=== PATIENT | female | born 1960 | race African-American/Black ===

== ENCOUNTER → 2017-05-31 08:37 | Outpatient (CLI) | payer MEDICARE ==
[2012-02-20 07:45] VITALS: BMI 33.3
[~2017-05-31 08:37] MED LIST: AMBIEN10 MG PO; BAYER CHEWABLE81 MG PO; CARDURA1 MG PO; COREG25 MG PO; COZAAR50 MG PO; EFFEXOR100 MG PO; GLIPIZIDE10 MG PO; GLUCOPHAGE1000 MG PO; HYDROCHLOROTHIA25 MG PO; LIPITOR80 MG PO; MORPHINE IMMEDI15 MG PO; NEURONTIN 300300 MG PO; NOVOLIN N100 U/ML SQ; PLAVIX75 MG PO; ROBAXIN500 MG PO; TORADOL10 MG PO
--- NOTE | 2017-06-08 12:49 | EC ---
PATIENT:SHAHZAD HERNANDEZ DATE OF SERVICE: 05/31/17 SEX: F MEDICAL RECORD: [id number] DATE OF : 56 LOCATION:[facility] AGE OF PATIENT: 56 ADMISSION DATE: 05/31/17 REFERRING PHYSICIAN: INTERPRETING PHYSICIAN: RAJWINDER MORAN MD ECHOCARDIOGRAM REPORT ECHO CHARGES 4 ECHO COMPLETE CLINICAL DIAGNOSIS: HTN/CAD ECHOCARDIOGRAPHIC MEASUREMENTS (adult normal given) AC root (d.<3.7cm) 3.5 cm LV Septum d (<1.2 cm> 1.9 cm Valve Excursion 2.3 cm LV Septum (systole) 2.3 cm Left Atria (s.<4.0cm> 3.6 cm LVPW d(<1.2cm) 1.6 cm RV (d.<2.3cm) 2.7 cm LVPW (sytole) 2.0 cm LV diastole(<5.6CM) 5.3 cm MV E-F(>70mm/sec) cm LV systole 3.0 cm LVOT Diameter 2.0 cm MV exc.(>10mm) cm Est.ejection fraction (50-75%) % Pericardial Effusion N DOPPLER: LVIT cm/sec A 64.0 cm/sec E 96.0 cm/sec LA cm/sec RVSP 34.0 mmHg LVOT 112 cm/sec AOP1/2T m/s Asc. Ao 171 cm/sec RVOT 95.0 cm/sec RA cm/sec PA 103 cm/sec AV Gradient Peak 12.0 mmHg AV Mean 5.5 mmHg AV Area 1.7 cm MV Gradient Peak 6.3 mmHg MV Mean 2.3 mmHg MV Area cm COMMENTS: Structural Technician: 1 JOSE NEWARK Homeopathic Doctor: 4 Dr. Moran TAPE# PACS DATE OF SERVICE: 05/31/2017 TRANSTHORACIC ECHOCARDIOGRAM FINDINGS: 1. Left ventricle shows mild concentric left ventricular hypertrophy with an ejection fraction of 65%. There is inflow characteristics that are normal. 2. The left atrium is normal size, normal function. 3. The aortic valve is normal size, normal function. 4. The mitral valve is structurally normal. Inflow of the mitral valve shows ECHOCARDIOGRAM REPORT [id number] SHAHZAD HERNANDEZ diastolic dysfunction. 5. The IVC is normal and collapses. 6. The tricuspid valve shows mild tricuspid regurgitation. There is no indication of elevation of the right ventricular systolic pressures. 7. The right ventricle is normal. 8. The right atrium appears to be mildly dilated. CONCLUSIONS: The patient has evidence of mild hypertensive heart disease without significant valvular abnormalities and with normal function. TRANSINT:[id number] Voice Confirmation ID: [id number] DOCUMENT ID: [id number] RAJWINDER MORAN MD at 1249 CC: [id number] DICTATION DATE: 06/01/17913 CUTTER APPRENTICE HAND: 06/01/17 1111 [facility] CLI 05/31/17 [facility] [address] [place] [address]
[2017-07-11 09:49] VITALS: BMI 40.5
== END | disposition home or self-care (01) ==
LOC: D.ECHO 05-26 09:00
DX: I25.119 Atherosclerotic heart disease of native coronary artery with unspecified angina pectoris (principal); Z95.5 Presence of coronary angioplasty implant and graft; I10 Essential (primary) hypertension

== ENCOUNTER 2017-06-20 06:47 | Outpatient (CLI) | payer MEDICARE ==
--- NOTE | ~2017-06-20 | HEMODYNAMI ---
PATIENT:SHAHZAD HERNANDEZ MEDICAL RECORD: [id number] : 56 [facility] ADMISSION DATE: 06/20/17 Generatedon:06/20/20179:55 Patient name: SHAHZAD HERNANDEZ Patient #: [id number] SSN: [id number] : 1960 Date of study: 06/20/2017 Page: Of Hemodynamic Procedure Report Patient Data Patient Demographics Procedure consent was obtained First Name: SHAHZAD Gender: Female Last Name: MARY : 1960 Middle Initial: L Age: 56 year(s) Patient #: [id number] Race: Black SSN: [id number] Additional ID: [id number] Contact details [address]: [address] [place] [address] State: [place] City: [place] Zip code: [address] Past Medical History Allergies Allergen Reaction Date Comments Reported Other allergy 06/20/2017 hydrocodone Admission Admission Data Admission Date: 06/20/2017 Admission Time: 6:47 Arrival Date: 06/20/2017 Arrival Time: 0:00 Admit Source: Other Insurance Payor: Private health insurance Height (in.): 68 BSA: 2.27 (m2) Height (cm.): 172.72 BMI: 39.08 (kg/m2) Weight (lbs.): 257 Weight (kg.): 116.57 Lab Results Lab Result Date: 06/20/2017 Lab Result Time: 0:00 Biochemistry Name Units Result Min Max BUN mg/dl 14 --(--*-)-- 7 18 Creatinine mg/dl 0.9 --(-*--)-- 0.6 1.3 CBC Name Units Result Min Max Hemoglobin g/dl 12.3 *-(----)-- 13.5 17.5 Procedure Procedure Types Cath Procedure Diagnostic Procedure LHC LHC w/Coronaries Miscellaneous Procedures Moderate Sedation up to 45 minutes Procedure Description Procedure Date Procedure Date: 06/20/2017 Procedure Start Time: 9:08 Procedure End Time: 9:47 Procedure Staff Name Function Laura Wheat RT Monitor Yakov Rowland RN Nurse Lorna Henry RT Scrub Andrea Plascencia MD Performing Physician Procedure Data Cath Procedure Fluoroscopy Diagnostic fluoroscopy Total fluoroscopy Time: 9.5 time: 9.5 min min Diagnostic fluoroscopy Total fluoroscopy dose: dose: 1408 mGy 1408 mGy Contrast Material Contrast Material Type Amount (ml) Isovue 300 76 Entry Location Entry Primary Successful Side Size Upsize Upsize Entry Closure Up ccessful Closure Location (Fr) 1 (Fr) 2 (Fr) Remarks Device Remarks Radial Right 6 Fr Mechanical artery Short Compression Femoral Right 5 Fr Exoseal artery Estimated blood loss: 5 ml Diagnostic catheters Device Type Used For End Catheter Placement Diagnostic Terumo 5Fr Multi-vessel [place] 110cm catheter Angiography Diagnostic Infinity 5Fr Multi-vessel 3DRC catheter Angiography Diagnostic Infinity 5Fr Left Coronary JL 4.0 catheter Angiography Diagnostic Infinity 5Fr Multi-vessel 3DRC catheter Angiography Diagnostic Infinity 5Fr LV Angiography Pigtail catheter Procedure Complications No complications Procedure Medications Medication Administration Route Dosage Oxygen NC 2 l/min Heparin Flush Bag added to field 2 bags (1000units/500ml NS) 0.9% NaCl I.V. 100 ml/hr Radial Cocktail added to field 1 syringe (Verapomil 2mg/Nitro 400mcg/Heparin 1500units) Versed I.V. 2 mg Fentanyl I.V. 50 mcg Fentanyl I.V. 50 mcg Radial Cocktail I.A. 1 syringe (Verapomil 2mg/Nitro 400mcg/Heparin 1500units) Versed I.V. 1 mg Hemodynamics Rest BSA: 2.27 (m2) HGB: 12.3 (g/dl) O2 Consumption: Estimated: 214.97 (ml/min) O2 Co nsumption indexed: Estimated:94.7 (ml/min/m) Heart Rate: 69 (bpm) Pressure Samples Time Site Value (mmHg) Purpose Heart Use Rate(bpm) 9:24 LV 175/60,75 EDP 70 9:42 LV 147/-4,22 EDP 67 9:43 LV 142/16,21 Pullback 67 9:43 AO 156/84(108) Pullback 67 Gradients Valve Time Site 1 Site 2 Mean SEP/DFP Peak To Heart Use (mmHg) (sec/min) Peak Rate (mmHg) (bpm) Aortic 9:24 LV AO 70 Aortic 9:43 LV AO 0 17 0 67 142/16,21 156/84(108) Calculations Valve P-P Mean Valve Index Valve Source Name Gradient Area Flow (cm2) Aortic 0 0 0 0 Snapshots Pre Cath Intra NCS Post Cath Vital Signs Time Heart Resp SPO2 etCO2 NIBP (mmHg) Rhythm Pain Sedation Rate (ipm) (%) (mmHg) Status Level (bpm) 8:43:11 66 21 100 0 161/94(134) NSR 0 (11) 10(A) , No pain 8:47:25 65 18 99 0 154/86(127) NSR 0 (11) 10(A) , No pain 8:51:43 66 16 99 42.1 170/99(145) NSR 0 (11) 10(A) , No pain 8:56:04 69 18 100 41.3 156/95(134) NSR 0 (11) 10(A) , No pain 9:00:24 64 16 100 40.6 152/82(106) NSR 0 (11) 10(A) , No pain 9:05:21 65 18 100 42.1 141/88(119) NSR 0 (11) 10(A) , No pain 9:09:37 68 18 100 42.1 147/87(120) NSR 0 (11) 10(A) , No pain 9:13:47 67 19 100 40.6 134/87(122) NSR 0 (11) 10(A) , No pain 9:17:59 74 18 97 42.1 127/78(110) NSR 0 (11) 10(A) , No pain 9:22:12 69 18 98 41.3 139/78(110) NSR 0 (11) 10(A) , No pain 9:26:29 70 17 99 42.1 142/89(118) NSR 0 (11) 10(A) , No pain 9:30:42 60 18 100 43.6 117/88(108) NSR 0 (11) 10(A) , No pain 9:34:51 65 16 100 42.9 136/80(118) NSR 0 (11) 10(A) , No pain 9:39:06 67 16 100 40.6 135/79(113) NSR 0 (11) 10(A) , No pain 9:43:22 67 16 100 45.1 141/77(115) NSR 0 (11) 10(A) , No pain 9:47:18 66 16 100 42.1 148/85(118) NSR 0 (11) 10(A) , No pain Medications Time Medication Route Dose Verified Delivered Reason Notes E ffectiveness by by 8:51:18 Oxygen NC 2 l/min Andrea Yakov Per Temo rea MD 8:51:26 Heparin Flush added 2 bags Andrea Yakov used for Bag to Temo Rowland RN procedure (1000units/500ml field BOYCE NS) 8:51:34 0.9% NaCl I.V. 100 Andrea Yakov Per ml/hr Temo rea MD 8:51:44 Radial Cocktail added 1 Andrea Yakov used for (Verapomil to syringe Temo Rowland RN procedure 2mg/Nitro field BOYCE 400mcg/Hepari 9:05:37 Versed I.V. 2 mg Andrea Yakov for sedation Temo Rowland RN, MD 9:05:44 Fentanyl I.V. 50 mcg Andrea Yakov for sedation Temo Rowland RN, MD 9:09:25 Fentanyl I.V. 50 mcg Andrea Yakov for sedation Temo Rowland RN, MD 9:13:08 Radial Cocktail I.A. 1 Andrea Andrea for (Verapomil syringe Temo Plascencia MD vasodilation 2mg/Nitro 400mcg/Hepari 9:32:08 Versed I.V. 1 mg Andrea Yakov for sedation Temo Rowland RN, MD Procedure Log Time Note 8:07:26 Informed consent obtained and on chart 8:07:31 Diagnostic Cath Status : Elective 8:11:26 Yakov Rowland RN sent for patient. Start room use. 8:12:17 Time tracking: Regular hours 8:12:21 Plan of Care:Hemodynamics will remain stable., Cardiac rhythm will remain stable., Comfort level will be maintained., Respiratory function will remain adequate., Patient/ family verbilizes understanding of procedure., Procedure tolerated without complication., Recovers from procedure without complications.. 8:13:30 Admit Source: Other 8:13:35 Patient Height : 68 inches 8:13:49 Patient Weight : 257 lbs 8:13:50 Arrival Date: 06/20/2017 12:00:00 AM 8:13:58 Insurance Payor : Private health insurance 8:16:01 Lab Result : Hemoglobin 12.3 g/dl 8:16:01 Lab Result : Creatinine 0.9 mg/dl 8:16:01 Lab Result : BUN 14 mg/dl 8:41:47 Patient received from Pre/Post Procedure Room to CCL 2 Alert and oriented. Tansferred to table in Supine position. 8:41:48 Correct patient and procedure confirmed by team. 8:41:48 Warm blankets applied, and venus hugger turned on for patient comfort. 8:41:50 ECG and BP/O2 sat monitors applied to patient. 8:41:52 Vital chart was started 8:41:59 Baseline sample Acquired. 8:42:07 Rhythm: sinus rhythm 8:42:10 Full Disclosure recording started 8:42:23 H&P Date Dictated: 06/13/2017 Within 30 days and on chart., H&P Addendum completed by physician on day of procedure. (MUST COMPLETE FOR ALL OUTPATIENTS). 8:42:24 Pre-procedure instructions explained to patient. 8:42:25 Pre-op teaching completed and patient verbalized understanding. 8:42:26 Family in waiting room. 8:42:28 Patient NPO since Midnight. 8:42:43 Patient allergic to Other allergyhydrocodone 8:42:46 Is the patient allergic to Iodine/contrast media? No. 8:42:48 Was the patient premedicated? No 8:42:49 Is patient on blood thinner?Yes 8:42:52 ACC The patient was administered the following blood thiners within the last 24 hours: ACCPlavix 8:42:56 Patient diabetic? Yes. 8:42:58 If diabetic: On Metformin? Yes 8:43:15 If on Metformin: Last Dose? 06/19/2017 8:43:21 Previous problem with sedation/anesthesia? No ? 8:43:22 Snore? Yes 8:43:23 Sleep apnea? No 8:43:24 Deviated septum? No 8:43:25 Opens mouth fully? Yes 8:43:26 Sticks out tongue? Yes 8:43:34 Airway obstruction? No ? 8:43:37 Dentures? No ? 8:43:41 Pre procedure: right dorsailis pedis pulse 1+ Palpable, but thready & weak; easily obliterated 8:43:43 Pre procedure: left dorsailis pedis pulse 1+ Palpable, but thready & weak; easily obliterated 8:43:45 Patient pain scale 0/10 ?. 8:43:55 IV patent on arrival in left forearm with 0.9% NaCl at KVO. 8:43:58 Lab results completed and on chart. 8:44:02 Right Radial & Right Groin area was prepped with chlora-prep and draped in sterile fashion 8:44:03 Sharps counted by scrub and verified by R.N. 8:44:03 Alarms reviewed by R. N. 8:51:18 Oxygen 2 l/min NC was administered by Yakov Rowland RN; Per physician; 8:51:26 Heparin Flush Bag (1000units/500ml NS) 2 bags added to field was administered by Yakov Rowland RN; used for procedure; 8:51:34 0.9% NaCl 100 ml/hr I.V. was administered by Yakov Rowland RN; Per physician; 8:51:44 Radial Cocktail (Verapomil 2mg/Nitro 400mcg/Heparin 1500units) 1 syringe added to field was administered by Yakov Rowland RN; used for procedure; 8:57:31 Zero performed for pressure channel P1 8:57:56 Baseline sample Acquired. 9:01:14 Physician paged 9:05:09 Physician arrived 9:05:10 Final Timeout: patient, procedure, and site verified with staff and physician. All members of the team are in agreement. 9:05:10 --------ALL STOP TIME OUT------ 9:05:12 Right Radial & Right Groin site verified by team. 9:05:14 Physical assessment completed. ASA score P 2 - A patient with mild systemic disease as per Andrea Plascencia MD. 9:05:18 Sedation plan: IV Moderate Sedation Versed, Fentanyl 9:05:37 Versed 2 mg I.V. was administered by Yakov Rowland RN; for sedation; 9:05:44 Fentanyl 50 mcg I.V. was administered by Yakov Rowland RN; for sedation; 9:05:45 Use device set Radial Dx 9:05:46 Acist Syringe opened to sterile field. 9:05:47 Terumo 6Fr Slender Glidesheath opened to sterile field. 9:05:47 Bag Decanter opened to sterile field. 9:05:47 Medline Cath Pack opened to sterile field. 9:05:48 Acist Hand Control opened to sterile field. 9:05:48 St Sinan 260cm J .035 wire opened to sterile field. 9:05:49 Tegaderm 4 x 4 opened to sterile field. 9:05:49 Acist Manifold opened to sterile field. 9:05:50 MBrace Wrist Support opened to sterile field. 9:05:53 Procedure started. 9:08:55 Local anesthetic to right radial artery with Lidocaine 2% by Andrea Plascencia MD.INITIAL ACCESS ONLY 9:09:25 Fentanyl 50 mcg I.V. was administered by Yakov Rowland RN; for sedation; 9:13:07 A 6 Fr Short sheath was inserted into the Right Radial artery 9:13:08 Radial Cocktail (Verapomil 2mg/Nitro 400mcg/Heparin 1500units) 1 syringe I.A. was administered by Andrea Plascencia MD; for vasodilation; 9:14:01 A Diagnostic Terumo 5Fr [place] 110cm catheter was advanced over the wire and used for Multi-vessel Angiography. 9:19:01 Covidien Wholey 300cm 0.035 wire opened to sterile field. 9:20:13 wholey wire advanced. 9:20:15 Catheter removed. 9:21:05 A Diagnostic Infinity 5Fr 3DRC catheter was advanced over the wire and used for Multi-vessel Angiography. 9:23:46 RCA angiography performed. 9:24:49 Catheter removed. 9:26:36 PERCUTANEOUS ENTRY 19GA needle opened to sterile field. 9:26:49 Local anesthetic to right femoral artery with Lidocaine 2% by Andrea Plascencia MD.ADDITIONAL ACCESS 9:26:57 Access obtained with 4Fr micropunture. 9:27:14 Terumo 5Fr Dushore Sheath opened to sterile field. 9:32:08 Versed 1 mg I.V. was administered by Yakov Rowland RN; for sedation; 9:33:42 A 5 Fr sheath was inserted into the Right Femoral artery 9:35:07 A Diagnostic Infinity 5Fr JL 4.0 catheter was advanced over the wire and used for Left Coronary Angiography. 9:36:27 LCA angiography performed. 9:36:46 Injector settings: Ml/sec: 3, Volume: 6, 9:38:33 Catheter removed. 9:39:32 A Diagnostic Infinity 5Fr 3DRC catheter was advanced over the wire and used for Multi-vessel Angiography. 9:40:31 RCA angiography performed. 9:40:54 GUZMAN angiography performed. 9:40:55 Right subclavian angiography performed 9:41:04 Injector settings: Ml/sec: 3, Volume: 6, 9:41:11 Catheter removed. 9:41:36 A Diagnostic Infinity 5Fr Pigtail catheter was advanced over the wire and used for LV Angiography. 9:42:47 LV hemodynamics recorded. 9:42:48 LV gram done using GUPTA 9:42:51 Injector settings: Ml/sec: 5, Volume: 15, 9:43:11 EF : 65 % 9:43:21 Cordis 5Fr Exoseal opened to sterile field. 9:44:29 Sheath removed intact; hemostasis achieved with Exoseal to the Right Femoral artery. 9:44:33 Procedure ended.(Physican Out) 9:45:06 Terumo TR Band Standard opened to sterile field. 9:45:57 Fluoroscopy time 09.50 minutes. 9:46:01 Flurop Dose total: 1408 9:46:01 Fluoroscopy dose: 1408 mGy 9:46:07 Contrast amount:Isovue 300 76ml. 9:46:08 Sharps counted by scrub and verified by R.N. 9:46:24 Sheath removed intact; hemostasis achieved with Mechanical Compression to the Right Radial artery. 9:46:29 TR band inflated with 10cc of air. 9:46:38 Insertion/operative site no bleeding no hematoma. 9:46:40 Post-op/insertion site Right Femoral artery dressed using a 4 x 4 and Tegaderm. 9:46:44 Post right radial artery:stable 9:46:46 Post Procedure Pulses reassessed and unchanged 9:46:49 Post procedure rhythm: unchanged. 9:46:52 Estimated blood loss: 5 ml 9:46:53 Post procedure instruction explained to patient.Patient verbalizes understanding. 9:46:54 Patient needs reinforcement of post procedure teaching. 9:47:14 Procedure type changed to Cath procedure, Diagnostic procedure, LHC, LHC w/Coronaries, Miscellaneous Procedures, Moderate Sedation up to 45 minutes 9:47:15 Procedure and supply charges have been captured, reviewed, submitted and are correct. 9:47:19 Procedure Complication : No complications 9:47:21 Vital chart was stopped 9:47:22 See physician's report for complete and final results. 9:47:25 Report given to Pre/Post Procedure Room. 9:47:28 Patient transfered to Pre/Post Procedure Room with Stretcher. 9:47:30 Procedure ended. 9:47:30 Full Disclosure recording stopped 9:47:35 End room use (Document Last) Device Usage Item Name Manufacture Quantity Catalog Hospital Part Current Minima l Lot# / Number Charge Number Stock Stock Serial# Code Acist Acist 1 90261 066570 055568 063096 20 Syringe Medical Systems Inc Medline Cath Cardinal 1 [id number] 416229 78869 229807 5 Pack Health Bag Decanter Microtek 1 2002S 687426 82117 856053 5 Medical Inc. Terumo 6Fr Terumo 1 [id number] 590811 589991 614844 [address] Sinan St Sinan 1 733017 354669 751465 177182 30 260cm J .035 wire Acist Hand Acist 1 71254 684717 484483 651291 5 Control Medical Systems Inc Acist Acist 1 24190 919346 030329 560145 5 Manifold Medical Systems Inc Tegaderm 4 x 3M 1 1626W 810199 906649 463788 5 4 MBrace Wrist Advanced 1 140-0250-00 005004 63546 222131 5 Support Vascular Dynamics Diagnostic Terumo 1 40-9382 743161 599417 494113 5 Terumo 5Fr [place] 110cm catheter Covidien Medtronic 1 [id number] 605590 874398 650230 3 Wholey 300cm 0.035 wire Diagnostic Cardinal 2 [id number] 303772 000811 098406 9 Infinity 5Fr Health 3DRC catheter PERCUTANEOUS JOOR Medical 1 [id number] 944600 677739 5 [id number] ENTRY 19GA needle Terumo 5Fr Terumo 1 [id number] 017924 038840 027343 40 Dushore Sheath Diagnostic Cardinal 1 [id number] 405253 927893 237668 10 Infinity 5Fr Health JL 4.0 catheter Diagnostic Cardinal 1 [id number] 432021 930164 646428 5 Infinity 5Fr [place] Pigtail catheter Cordis 5Fr Cardinal 1 EX500 451945 408905 238081 10 Ace [facility]rix [facility] [id number] 396282 095516 963289 40 Band Standard Signature Audit [place] Stage Time Signature Unsigned Intra-Procedure 06/20/2017 Laura Wheat RT(R) 9:49:12 AM RT(R) 06/20/2017 9:52:37 AM Intra-Procedure 06/20/2017 Laura Wheat 9:55:22 AM RT(R) Signatures Monitor : Laura Wheat RT Signature : Date : Time : [address] [place] [address]
[2017-06-20 07:11] VITALS: BP 139/70; BMI 37.3
[2017-06-20 07:27] LABS: BASOPHILS 0.2 % (0-2); EOSINOPHILS 4.3 % (0-7); HEMATOCRIT 38.8 % (36.0-48.0); HEMOGLOBIN 12.3 g/dL (12-16); LYMPHOCYTES 49.7 % (15-50); MCH 28.7 pg (26.0-34.0); MCHC 31.7 g/dL (31.0-37.0); MCV 90.4 fL (80.0-100.0); MEAN PLATELET VOLUME 10.7 fL (7.4-10.4); NEUTROPHILS 39.8 % (40-80); PLATELET COUNT 205 10x3/uL (130-400); RBC 4.29 10x6/uL (4.00-5.40); RDW 13.4 % (11.5-14.5); WBC 4.5 10x3/uL (4.8-10.8)
[2017-06-20 07:41] LABS: ANION GAP 10.8 mmol/L (8-16); CALCIUM 9.1 mg/dL (8.5-10.1); CARBON DIOXIDE 31.8 mmol/L (21.0-32.0); CREATININE - SERUM 0.9 mg/dL (0.6-1.3); POTASSIUM - SERUM 3.6 mmol/L (3.5-5.1)
[2017-06-20] MEDS ORDERED: MORPHINE IMMEDI15 MG PO (07:53)
[2017-06-20] MEDS ORDERED: GLUCOPHAGE1000 MG PO (07:54)
[2017-06-20] MEDS ORDERED: ROBAXIN500 MG PO (07:55)
[2017-06-20] MEDS ORDERED: COZAAR50 MG PO (07:55)
[2017-06-20] MEDS ORDERED: PLAVIX75 MG PO (07:56)
[2017-06-20] MEDS ORDERED: COREG25 MG PO (07:56)
[2017-06-20] MEDS ORDERED: LIPITOR80 MG PO (07:57)
[2017-06-20] MEDS ORDERED: NOVOLIN N100 U/ML SQ (07:57)
[2017-06-20] MEDS ORDERED: CARDURA1 MG PO (07:58)
[2017-06-20] MEDS ORDERED: NEURONTIN 300300 MG PO (07:58)
[2017-06-20] MEDS ORDERED: GLIPIZIDE10 MG PO (07:59)
[2017-06-20] MEDS ORDERED: AMBIEN10 MG PO (07:59)
[2017-06-20] MEDS ORDERED: HYDROCHLOROTHIA25 MG PO (07:59)
[2017-06-20] MEDS ORDERED: BAYER CHEWABLE81 MG PO (08:00)
--- NOTE | 2017-06-20 10:30 | NUR ---
2L NC, NO RESP DISTRESS NOTED. RIGHT GROIN 5F EXOSEAL AND RIGHT WRIST TR BAND CDI, NO BLEEDING OR HEMATOMA NOTED. VSS. NO C/O CHEST PAIN OR NAUSEA. CALL LIGHT WITHIN REACH.
--- NOTE | 2017-06-20 11:00 | NUR ---
2L NC, NO RESP DISTRESS. RIGHT WRIST TR BAND AND RIGHT GROIN 5F EXOSEAL CDI, NO BLEEDING OR HEMATOMA NOTED. VSS. DRINK GIVEN, NO C/O NAUSEA OR PAIN. FAMILY AT BEDSIDE. WILL CONTINUE TO MONITOR.
--- NOTE | 2017-06-20 11:18 | NUR ---
3CC OF AIR REMOVED FROM TR BAND, NO BLEEDING NOTED.
--- NOTE | 2017-06-20 11:30 | NUR ---
3CC OF AIR REMOVED FROM TR BAND, NO BLEEDING NOTED.
--- NOTE | 2017-06-20 11:43 | NUR ---
HOB ELEVATED 30 DEGREES. 2CC OF REMOVED FROM TR BAND, NO BLEEDING NOTED. SANDWICH TRAY AND DRINK GIVEN. NO C/O NAUSEA OR PAIN. VSS. WILL CONTINUE TO MONITOR.
--- NOTE | 2017-06-20 12:03 | NUR ---
3CC OF AIR REMOVED FROM TR BAND, NO BLEEDING NOTED. RIGHT GROIN 5F EXOSEAL CDI. LEFT FA PIV D/C'D WITH CATHETER INTACT, BAND AID TO SITE. UP TO BEDSIDE TO GET DRESSED.
--- NOTE | 2017-06-20 12:12 | NUR ---
REMAINING AIR REMOVED FROM TR BAND, DRESSING TO SITE. DISCHARGE INSTRUCTIONS GIVEN, VERBALIZED UNDERSTANDING.
--- NOTE | 2017-06-20 12:20 | NUR ---
TAKEN OUT VIA WHEELCHAIR BY CATH CLINIC PHYSICIAN. LEFT FACILITY WITH AND ALL PERSONAL BELONGINGS.
== END 2017-06-20 12:20 | disposition home or self-care (01) ==
LOC: D.CATH 06:47
PROVIDERS: Internal Medicine Cardiovascular Disease
DX: I25.10 Atherosclerotic heart disease of native coronary artery without angina pectoris (principal); I70.8 Atherosclerosis of other arteries; R94.39 Abnormal result of other cardiovascular function study; Z01.812 Encounter for preprocedural laboratory examination

== ENCOUNTER → 2017-06-27 11:37 | Outpatient (CLI) | payer MEDICARE ==
[2017-06-20 07:11] VITALS: BMI 37.3
[2017-06-28 10:17] LABS: HEPATITIS C ANTIBODY 0.2 (0.0-0.9)
== END | disposition home or self-care (01) ==
LOC: D.LAB 11:37 → D.US 17:00
PROVIDERS: Internal Medicine Cardiovascular Disease
DX: Z01.812 Encounter for preprocedural laboratory examination (principal); R01.1 Cardiac murmur, unspecified

== ENCOUNTER 2017-07-10 05:00 | Inpatient (IN) | payer MEDICARE ==
--- NOTE | 2017-07-01 12:55 | HP ---
PATIENT: SHAHZAD HERNANDEZ MEDICAL RECORD: [id number] ACCOUNT: [id number] LOCATION:[facility] : 56 ADMISSION DATE: 07/10/17 HISTORY AND PHYSICAL EXAMINATION SHAHZAD Gabriel (56yo, F) ID# [id number]. Date/Time06/27/2017 10:58LPARY1958[facility] Dept.[facility] [facility] ClinicProviAugusta University Medical CenterYONAS ART MDInsuranceMed Primary: BCBS-[place] (MEDICARE REPLACEMENT/ADVANTAGE - PFFS) Insurance # : [id number] Referring Provider Name : BRENNON EMANUEL Employer Name : UNKNOWN Prescription: ARBCBS - Member is eligible. Chief Complaint Coronary artery disease referral from Dr Plascencia Patient's Care Team Referring Provider (): BRENNON EMANUEL: Janie [address], [place] [phone], , Vitals BP:168/100 sitting R arm 06/27/2017 10:48 am 162/96 sitting L arm 06/27/2017 10:50 amBP Cuff Size:adult 06/27/2017 10:48 am adult 06/27/2017 10:50 amHt:5 ft 8 in 06/27/2017 10:50 amWt:245 lbs 06/27/2017 10:50 amNotes:hx stent placed two years ago, and has been hypervigilant since according to her. Recently began to have palpitations, then on her stress test she had chest pain. Otherwise will have occ asional "fluttering", chest tightness and chest pressure. Lasts just few minutes, and happens maybe 2-3 times per week. At rest and with exertion. 06/27/2017 10:52 amBMI:37.3 06/27/2017 10:50 amAllergies Reviewed Allergies HYDROCODONEMedications Reviewed Medications Aspir-81 81 mg tablet,delayed release Take 1 tablet(s) every day by oral route.06/26/17 enteredKathy Wilsonatorvastatin 80 mg bimfiz49/25/17 filledPRIMEcarvedilol 25 mg iniccr28/11/17 filledPRIMEclopidogrel 75 mg tablet TK 1 T PO QD06/16/17 filledsurescriptsdoxazosin 2 mg tablet TK 1/2 T PO Q 12 H005/22/17 filledPRIMEgabapentin 300 mg capsule TK ONE C PO BID03/20/17 filledsurescriptsglipiZIDE 10 mg oqqkfe39/05/17 filledPRIMEHumuLIN N1 enteredKathy WilsonhydroCHLOROthiazide 25 mg uvpnow27/09/17 filledPRIMElosartan 50 mg tablet TK 1 T PO BID06/16/17 filledsurescriptsmetFORMIN 1,000 mg aoonuw56/24/17 filledPRIMEmethocarbamol 500 mg unbmno04/11/17 filledPRIMEmorphine 15 mg immediate release /26/17 filledPRIMESlo-Niacin 250 mg tablet,extended release TK 1 T PO QHS11/15/16 filledsurescriptsvenlafaxine 100 mg tablet TK 1 T PO TID1 filledsurescriptszolpidem 10 mg tablet TK 1 T PO QD HS06/23/17 filledsurescriptsProblems Reviewed Problems Coronary arteriosclerosis - Onset: 06/26/2017 Family History Discussed Family History Father- Myocardial infarctionMother- Cerebrovascular accidentPaternal Grandfather- Myocardial infarctionSocial History Discussed Social History HISTORY AND PHYSICAL [id number] SHAHZAD HERNANDEZ Cardiology Family history of heart disease?: Y Smoking Status: Former smoker (Notes: quit 2011) Smoker (08/29 PPD) High Cholesterol: Y High blood pressure: Y Exercise level: None Overweight: Y Obese: Y Diabetes: Y Al cohol intake: None Diet: Regular Occupation: disabled Tobacco-years of use: 25 Surgical History Reviewed Surgical History 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 HPI Coronary Artery Disease F/U Reported by patient. Severity: symptoms are worsening Associated Symptoms: tightness and pressure coronary artery disease with angina equivalent and shortness of breath ROS Patient reports shortness of breath when walking and shortness of breath when lying down but reports no chest pain, no arm pain on exertion, no palpitations, and no known heart murmur. She reports shortness of breath but reports no cough, no wheezing, and no coughing up blood. She reports back pain (chronic) but reports no muscle aches, no muscle weakness, no arthralgias/joint pain, and no swelling in the extremities. She reports no fever, no night sweats, no significant weight gain, no significant weight loss, and no exercise intolerance. She reports no dry eyes, no irritation, and no vision change. She reports no difficulty hearing and no ear pain. She reports no frequent nosebleeds and no nose/sinus prob l ems. She reports no sore throat, no bleeding gums, no snoring, no dry mouth, no mouth ulcers, no oral abnormalities, and no teeth problems. She reports no jugular vein distension and no swollen glands. She reports no abdominal pain, no vomiting, normal ap p etite, no diarrhea, not vomiting blood, no nausea, and no constipation. She reports no incontinence, no difficulty urinating, no hematuria, and no increased frequency. She reports no abnormal mole, no jaundice, and no rashes. She reports no loss of consci o usness, no weakness, no numbness, no seizures, no dizziness, and no headaches. She reports no depression, no sleep disturbances, feeling safe in relationship, and no alcohol abuse. She reports no fatigue. She reports no swollen glands and no HISTORY AND PHYSICAL [id number] SHAHZAD HERNANDEZ bruising. She reports no runny nose, no sinus pressure, no itching, no hives, and no frequent sneezing. ROS as noted in the HPI Physical Exam Patient is a 56-year-old female. Constitutional: General Appearance healthy-appearing, well developed, and overweight. Level of Distress NAD. Ambulation ambulating normally. Cardiovascular: Apical Impulse not displaced or no thrill. Heart Auscultation normal s1 and s2; no murmurs, rubs, or gallops; and RRR. Arterial Pulses no abdominal aorta bruits, femoral bruits, or p opliteal bruits and 2+ bilateral, carotid 2+ bilateral, femoral 2+ bilateral, popliteal 2+ bilateral, and dorsalis pedis 2+ bilateral. Edema no edema or varicosities. Lungs: Repiratory Effort no dyspnea. Percussion no hyperresonance or dullness or flatnes s. Auscultation no wheezing, rhonchi, or rales / crackles and breathing sounds normal, good air movement, and CTA except as noted. Abdomen: Bowl Sounds normal. Inspection and Palpation no tenderness, guarding, masses, or rebound tenderness and soft and no n-distended. Liver non-tender and no hepatomegaly. Spleen non-tender and no splenomegaly. Hernia none palpable. Musculoskeletal System: Gait And Stance normal gait and stance. Digits and Nails normal nails and no cyanosis. Neurologic: Cranial Nerves grossly intact. Reflexes DTRs 2+ bilaterally throughout. Sensation grossly intact. Lymph Nodes: Lymph Nodes no cervical LAD, supraclavicular LAD, axillary LAD, or inguinal LAD. Eyes: Lids and Conjunctivae no discharge or pallor and non-injected. Pupils PERRLA. Cornea grossly intact. EOM EOMI. Lens clear. Sclera non-icteric. Neck: Neck no masses, enlarged lymph nodes, or carotid bruits and supple and trachea midline. Thyroid no enlargement or nodules and non-tender. Skin: Inspection and Palpation no rash, lesions, ulcers, jaundice, or abnormal nevi. Assessment / Plan occlusive coronary artery disease with angina equivalent and shortness of breath 1. Coronary arteriosclerosis I25.118: Atherosclerotic heart disease of [place] coronary artery with other forms of angina pectoris Discussion Notes left flank coronary artery lesion and totally occluded right coronary artery. I have discussed her disease process with her and her daughter in detail as well as the alternative methods of treatment we discussed coronary artery bypass including the expected benefits and risk which include bleeding, traction, stroke, , and the imponderables. She understands all of the above and wishes to proceed with planned s urgery. She will need to have carotid Dopplers prior to surgery and discontinue Plavix for 1 week HISTORY AND PHYSICAL [id number] SHAHZAD HERNANDEZ EDWARD MD at 1255 CC: [phone] DICTATION DATE: 06/27/17 1030 HEAVY EQUIPMENT SUPERVISOR: SOFIA 06/30/17 1347 PRE [address] [place] [id number] [place] [id number]
[2017-07-07 09:53] LABS: BASOPHILS 0 % (0-2); EOSINOPHILS 3.1 % (0-7); HEMATOCRIT 38.2 % (36.0-48.0); IMMATURE GRANULOCYTES 0.2 % (0-5); MCH 28.4 pg (26.0-34.0); MCHC 31.4 g/dL (31.0-37.0); MCV 90.3 fL (80.0-100.0); MEAN PLATELET VOLUME 10.3 fL (7.4-10.4); MONOCYTES 5.7 % (2-11); PLATELET COUNT 203 10x3/uL (130-400); RBC 4.23 10x6/uL (4.00-5.40); RDW 13.6 % (11.5-14.5); WBC 5.1 10x3/uL (4.8-10.8)
[2017-07-07 10:23] LABS: APTT 27.2 SECONDS (22.8-39.4); INR 0.97 (0.85-1.17); PROTIME 12.7 SECONDS (11.6-15.0)
[2017-07-07 10:30] LABS: ALBUMIN 3.4 g/dL (3.4-5.0); ALKALINE PHOSPHATASE 93 U/L (46-116); ALT (SGPT) 22 U/L (10-68); CALC OSMOLALITY 283 mosm/kg (275-300); CALCIUM 8.8 mg/dL (8.5-10.1); CARBON DIOXIDE 32.2 mmol/L (21.0-32.0); CHLORIDE - SERUM 104 mmol/L (98-107); CHOLESTEROL, TOTAL 188 mg/dL (0-200); CREATININE - SERUM 0.8 mg/dL (0.6-1.3); GLUCOSE 121 mg/dL (74-106); PHOSPHOROUS 3.7 mg/dL (2.5-4.9); POTASSIUM - SERUM 3.8 mmol/L (3.5-5.1); PROTEIN - SERUM 6.7 g/dL (6.4-8.2); SODIUM 142 mmol/L (136-145); T4 THYROXIN - FREE 0.94 ng/dL (0.76-1.46); THYROID STIMULATING HORMONE 2.02 uIU/mL (0.36-3.74); UREA NITROGEN 12 mg/dL (7-18); URIC ACID 6.8 mg/dL (2.6-7.2); eGFR NON AFRICAN AMERICAN 78 mL/min (90-120)
[2017-07-07 10:31] LABS: APPEARANCE HAZY (CLEAR); BACTERIA MODERATE /hpf (NONE SEEN); BILIRUBIN NEGATIVE (NEGATIVE); COLOR YELLOW (YELLOW); EPITHELIAL CELLS 0-5 /hpf (0-5); GLUCOSE NEGATIVE (NEGATIVE); KETONE LARGE mg/dL (NEGATIVE); MUCUS <1+ /lpf (NONE SEEN); NITRITE NEGATIVE (NEGATIVE); PROTEIN NEGATIVE (NEGATIVE); RED CELLS - URINE RARE /hpf (0-5); SPECIFIC GRAVITY 1.025 (1.005-1.020); UROBILINOGEN NORMAL (NORMAL); WHITE CELLS - URINE OCC /hpf (0-5)
[2017-07-07 10:33] LABS: HEMOGLOBIN A1C 7.2 % (4.8-6.0)
[2017-07-07 17:43] LABS: COLD SCREEN @ 4 DEGREES 1+ (NEGATIVE); COLD SCREEN ROOM TEMP NEGATIVE (NEGATIVE)
[2017-07-10] VITALS (37 sets, daily range): BP systolic 102–157; BP diastolic 59–84; BMI 39.1; BMI 39.3
[~2017-07-10] VITALS: Ht 172.7 cm; Wt 121.3 kg
[~2017-07-10 05:00] MED LIST changes: -EFFEXOR100 MG PO; -TORADOL10 MG PO
[2017-07-10 08:40] LABS: PLT FUNCT.(P2Y12) PLAVIX 288 PRU (194-418)
[2017-07-10 14:20] LABS: HEMATOCRIT 26.7 % (36.0-48.0); HEMOGLOBIN 8.6 g/dL (12-16); MCH 28.7 pg (26.0-34.0); MCHC 32.2 g/dL (31.0-37.0); MEAN PLATELET VOLUME 10.4 fL (7.4-10.4); RDW 13.7 % (11.5-14.5); WBC 9.3 10x3/uL (4.8-10.8)
[2017-07-10 14:30] LABS: CALC OSMOLALITY 292 mosm/kg (275-300); CALCIUM 7.2 mg/dL (8.5-10.1); CARBON DIOXIDE 25.4 mmol/L (21.0-32.0); CHLORIDE - SERUM 113 mmol/L (98-107); CREATININE - SERUM 0.6 mg/dL (0.6-1.3); GLUCOSE 140 mg/dL (74-106); POTASSIUM - SERUM 3.6 mmol/L (3.5-5.1); SODIUM 147 mmol/L (136-145); UREA NITROGEN 9 mg/dL (7-18); eGFR NON AFRICAN AMERICAN > 90 mL/min (90-120)
[2017-07-10 14:44] LABS: APTT 33.4 SECONDS (22.8-39.4); INR 1.42 (0.85-1.17); PROTIME 17.3 SECONDS (11.6-15.0)
--- NOTE | 2017-07-10 15:00 | NUR ---
PT ARRIVED TO CVICU ROOM 4 FROM O.R. PT SEDATED AND VENTILATED. 8.0 ETT AT 22CM LIPLINE. HAS LEFT SUBCLAVIAN CENTRAL LINE, RIJ SWAN, RIGHT RADIAL ARTLINE. MIDSTERNAL DRESSING. SUBSTERNAL DRESSING WITH TEMP PACER AND CHEST TUBES X3. PLACED ON SUCTION, NO AIRLEAK NOTED. RIGHT LEG HARVEST SITES, THUAN DRAIN X2. INFUSING PLASMALYTE AT 90ML/HR, BURETROL AT 10ML/HR, DOPAMINE AT 5MCG/KG/MIN, INSULIN AT 3UNITS/HR. PLACED ON MONITORING HUERTA CATHETER.
--- NOTE | 2017-07-10 15:45 | NUR ---
ORDERS TO ADMINISTER 2 PRBC. FIRST UNIT INFUSING.
--- NOTE | 2017-07-10 16:59 | NUR ---
Pt BP dropped to 80's. Zeroed lines. Checked for bleeding. Dr. Yoo at desk. Notified. Came in to see patient and rechecked lines. Asked for fluid challenge.
--- NOTE | 2017-07-10 18:40 | NUR ---
DR ART UPDATED WITH RECENT ABG RESULTS AND MONITORING VALUES. PT AWAKE, FOLLOWS COMMANDS. RESPIRATORY WEANING VENT SETTINGS PER PROTOCOL.
--- NOTE | 2017-07-10 19:30 | NUR ---
REPORT RECIEVED. ASSESSMENT COMPLETED. SEE FLOW SHEET FOR FUTHER DETAILS. CHEST TUBES X3 NOTED. 20CM SUCTION WITH NO LEAKS NOTED. SWAN AT 51 ESTIMATED MARCIA. PT POSITIONED FOR COMFORT WILL CONTINUE TO MONITOR.
--- NOTE | 2017-07-10 20:30 | NUR ---
PT EXTUBATED AND CHIEF OF STAFF EDUCATION DONE. PT FACE CLEANED. PT ALSO POSITIONED FOR COMFORT, WILL CONTINUE TO MONIOR PT.
--- NOTE | 2017-07-10 23:00 | NUR ---
REASSESSMENT COMPLETED. NO ACUTE CHNAGES. SEE FLOW SHEET FOR FURTHER DETAILS. PT HAS BEEN HAVING SOME INCISIONAL PAIN. CLAM PICKER BOLUS WAS GIVEN. VSS. PT POSITIONED FOR COMFORT WILL CONTINUE TO MONITOR PT.
[2017-07-11] VITALS (97 sets, daily range): BP systolic 98–154; BP diastolic 52–83; Ht 172.7 cm; Wt 121.3 kg
[2017-07-11 00:43] LABS: HEMATOCRIT 22.1 % (36.0-48.0); MEAN PLATELET VOLUME 10.1 fL (7.4-10.4); RBC 2.61 10x6/uL (4.00-5.40); RDW 15.4 % (11.5-14.5)
[2017-07-11 00:46] LABS: MCV 84.7 fL (80.0-100.0); WBC 5.6 10x3/uL (4.8-10.8)
[2017-07-11 00:48] LABS: HEMOGLOBIN 7.3 g/dL (12-16)
--- NOTE | 2017-07-11 01:00 | NUR ---
BLOOD GASES DONE H&H WAS 23 AND 7.7. DID SERUM REDRAW CAME BACK 22.1. STARTING TO ADMINISTER 2 UNITS PER ORDER. POSITIONED PT FOR COMFORT WILL CONTINUE TO MONITOR.
--- NOTE | 2017-07-11 03:00 | NUR ---
REASSESSMENT COMPLETED. NO CHANGES AT THIS TIME. SEE FLOW SHEET FOR FURTHER DETAILS. PT STARTING TO REST WITH NO SIGNS OF DISCOMFORT. POSITIONED FOR COMFORT WILL CONTINUE TO MONITOR PT.
[2017-07-11 06:07] LABS: MCH 27.9 pg (26.0-34.0); MCHC 33.2 g/dL (31.0-37.0); MCV 83.9 fL (80.0-100.0); RDW 15.8 % (11.5-14.5)
[2017-07-11 06:13] LABS: HEMATOCRIT 28.6 % (36.0-48.0); HEMOGLOBIN 9.5 g/dL (12-16); RBC 3.41 10x6/uL (4.00-5.40); WBC 7.7 10x3/uL (4.8-10.8)
[2017-07-11 06:30] LABS: ALBUMIN 3.1 g/dL (3.4-5.0); ALKALINE PHOSPHATASE 35 U/L (46-116); ALT (SGPT) 21 U/L (10-68); CALC OSMOLALITY 288 mosm/kg (275-300); CALCIUM 7.7 mg/dL (8.5-10.1); CARBON DIOXIDE 27.9 mmol/L (21.0-32.0); CHLORIDE - SERUM 110 mmol/L (98-107); CREATININE - SERUM 0.8 mg/dL (0.6-1.3); GLUCOSE 111 mg/dL (74-106); POTASSIUM - SERUM 4.3 mmol/L (3.5-5.1); PROTEIN - SERUM 4.9 g/dL (6.4-8.2); SODIUM 145 mmol/L (136-145); UREA NITROGEN 9 mg/dL (7-18); eGFR NON AFRICAN AMERICAN 78 mL/min (90-120)
--- NOTE | 2017-07-11 06:30 | NUR ---
LEG DRESSING CHANGED PER ORDER. DOPAMINE WEANED OFF BEFORE DRESSING CHANGED AT 0530. DRESSING CHANGED AT 0605. PT BP STARTED INCREASING DURING DRESSING CHANGE. NITRO STARTED AFTER DRESSING CHANGE TO KEEP BP IN PERAMETERS. CHANGED PT LINENS AND POSITIONED FOR COMFORT.
--- NOTE | 2017-07-11 07:58 | NUR ---
Shift report received. Assumed care of patient. Pt awake and moaning out in pain. Continually uses pain pump but says doesn't relieve pain. Pain reported in chest at incision. Repositioned to try to relieve pain. Robaxin given as requested. Pt on Plasmalyte at 100ml/hr, Cefepime at 11.8ml/hr, Insulin at 2units/hr, Nitro at 0.57 mcg/kg/min. Chest Tubes x3 no airleak noted, temp pacer VVI 60. Teds and SCDs. Temp 37.8 via granado catheter, clear pale yellow urine.
--- NOTE | 2017-07-11 08:05 | NUR ---
Heparin removed from pressure bags and replaced with NS due to decreased platelet count.
--- NOTE | 2017-07-11 08:17 | NUR ---
Dr Yoo has been in to see patient. Family at bedside. Update provided. New orders received.
--- NOTE | 2017-07-11 09:21 | NUR ---
Pt resting quietly at this time. Family at bedside. VSS
--- NOTE | 2017-07-11 09:49 | NUR ---
Pt lightly snoring at this time. Dr Plascencia stopped by to say "hi" to patient and see how she was doing. She was sleeping at that time.
--- NOTE | 2017-07-11 11:08 | NUR ---
Pt repositioned to left side. Strong cough.
--- NOTE | 2017-07-11 11:33 | NUR ---
Incentive spirometry performed. 500-750. Lunch tray provided, but patient refused. On bedside table just in case.
--- NOTE | 2017-07-11 12:05 | NUR ---
Family at bedside. Update provided. Advised them to encourage patient to try to eat some of her lunch.
--- NOTE | 2017-07-11 13:25 | NUR ---
Patient sleeping. No visitors present. Nursing request patient not be disturbed at this time. Will attempt to assess dc plan/needs tomorrow.
--- NOTE | 2017-07-11 13:35 | NUR ---
ABG's obtained for review. No PRN treatment required at this time. Family at bedside. Incentive spirometry performed. Updated patient to when she is able to have next dose of Toradol. Offered repositioning, pt denied discomfort of position at this time.
--- NOTE | 2017-07-11 16:13 | NUR ---
Dressing to chest tubes and temp pacer sites changed per order. Incisions WNL. Dressing dated and initialed. Family now at bedside. THUAN drains stripped and emptied.
--- NOTE | 2017-07-11 16:35 | NUR ---
Dinner tray provided to patient. Set head of bed up for her. Family assisting with meal. Denies any other needs at this time.
--- NOTE | 2017-07-11 17:37 | NUR ---
Pt rated pain at level "5" when asked about pain when changing out Morphine syringe. Says Toradol has helped to control pain along with the DEVELOPER PROGRAMMER. Ate half of dinner and is currently watching television.
--- NOTE | 2017-07-11 18:10 | NUR ---
Incentive spirometry performed. 750.
--- NOTE | 2017-07-11 18:46 | NUR ---
ORAL CARE PERFORMED WITH PERIDEX ORDERED
--- NOTE | 2017-07-11 19:28 | NUR ---
REPORT RECIEVED ASSESSMENT COMPLETED. SEE FLOW SHEET FOR FURTHER DETAILS. CHEST TUBES X3 NOTED TO 20 CM SUCTION WITH NO AIR LEAKS NOTED. TPM SECURED TO CHEST AND SENSING. PT POSITIONED FOR COMFORT, WILL CONTINUE TO MONITOR PT.
--- NOTE | 2017-07-11 21:00 | NUR ---
PT FEVER IS BEGINNING TO INCREASE PRN TYLENOL GIVEN. CHECKED ORAL TEMP IT READS 99.5. PT IS POSITIONED FOR COMFORT WITH NO BLANKETS AT THIS TIME. WILL CONTINUE TO MONITOR PT.
--- NOTE | 2017-07-11 23:00 | NUR ---
REASSESSMENT COMPLETED. NO ACUTE CHANGES AT THIS TIME. SEE FLOW SHEET FOR FURTHER DETAILS.PT RESTIN IN BED WITH NO SIGNS OF DISCOMFORT. POSITIONED FOR COMFORT WILL CONTINUE TO MONITOR.
[2017-07-12] VITALS (47 sets, daily range): BP systolic 101–152; BP diastolic 51–661
--- NOTE | 2017-07-12 01:00 | NUR ---
PT SLEEPING WITH EYES CLOSED. SHOWS NO SIGN OF DISTRESS. WILL CONTINUE TO MONITOR PT.
--- NOTE | 2017-07-12 03:00 | NUR ---
REASSESSMENT COMPLETED. NO CHANGES AT THIS TIME. SEE FLOW SHEET FOR FURTHER DETAILS. PT POSITIONED FOR COMFORT WILL CONTINUE TO MONITOR PT.
--- NOTE | 2017-07-12 05:30 | NUR ---
PT RIGHT LEG DRESSING WERE SATURATED. CHANGED THEM PER ORDER. PT POSITIONED FOR COMFORT, WILL CONTINUE TO MONITOR.
[2017-07-12 06:11] LABS: HEMATOCRIT 25.3 % (36.0-48.0); HEMOGLOBIN 8.4 g/dL (12-16); MCH 28.2 pg (26.0-34.0); MCHC 33.2 g/dL (31.0-37.0); MCV 84.9 fL (80.0-100.0); MEAN PLATELET VOLUME 9.9 fL (7.4-10.4); RBC 2.98 10x6/uL (4.00-5.40); RDW 16.4 % (11.5-14.5); WBC 7.5 10x3/uL (4.8-10.8)
--- NOTE | 2017-07-12 06:30 | NUR ---
ORAL CARE DONE WITH PERIDEX
[2017-07-12 06:42] LABS: ALBUMIN 2.5 g/dL (3.4-5.0); BILIRUBIN - TOTAL 0.55 mg/dL (0.2-1.3); CALCIUM 7.4 mg/dL (8.5-10.1); CARBON DIOXIDE 27.9 mmol/L (21.0-32.0); CREATININE - SERUM 0.9 mg/dL (0.6-1.3); POTASSIUM - SERUM 3.9 mmol/L (3.5-5.1); PROTEIN - SERUM 4.9 g/dL (6.4-8.2)
--- NOTE | 2017-07-12 07:10 | NUR ---
Report received. Assumed care. No changes overnight with exception of saturation of leg dressing causing need to change. Pt pain well controlled with HOME CARE ASSOCIATE and PRN Toradol. Pt currently sleeping, awakened for assessment. VSS. ART CVP and PA lines zeroed. Lungs diminished in bases. Reported 1000 for I.S. Chest tube output minimal, no airleak noted. THUAN bulbs compressed. Teds and SCDs in use. Temp pacer set to VVI60. Pt is SR-ST on monitor. Current fluids running -Plasmalyte at 100ml/hr and Insulin at 2units/hr. Buretrol at 10ml/hr. Temp 37.6, urine clear pale yellow.
--- NOTE | 2017-07-12 09:09 | NUR ---
Dr Yoo came in to see patient. Pulled lines. All dressings changed/applied per orders. Family now at bedside. Pt breakfast tray and fresh water provided.
--- NOTE | 2017-07-12 10:20 | NUR ---
Pt assisted up to chair with physical therapist. New linens placed on bed. Diet soda provided as requested. Call light in reach.
--- NOTE | 2017-07-12 13:48 | NUR ---
Pt requesting to go back to bed. Physical therapist came by to do afternoon therapy. Pt walked to wall opposite her doorway and then back to bed. Assisted to bed by therapist. Family now at bedside.
--- NOTE | 2017-07-12 14:01 | NUR ---
* Is the patient Alert and Oriented? Yes 0 * How many steps to enter\exit or inside your home? 0 0 * PCP Dr. Vivar 0 * [facility]acy [facility] in [place] 0 * Preadmission Environment Home with Family 0 * ADLs Independent 0 * List name and contact numbers for known caregivers / representatives who currently or will assist patient after discharge: Spouse - Gerardo [phone] Daughter - Jewell [phone] 0 * Community resources currently utilized [employer] 0 * Additional services required to return to the preadmission environment? No 0 * Can the patient safely return to the preadmission environment? Yes 0 * Has this patient been hospitalized within the prior 30 days at any hospital? No Patient Name: SHAHZAD HERNANDEZ Admission Status: Elective Accout number: [id number] Admission Date: 07-10-2017 : 1960 Admission Diagnosis:ATHSCL HEART DISEASE OF [place] CORONARY ARTERY W/O ANG Attending: FRANNIE ART Current LOS: 2 Anticipated DC Date: 07-17-2017 Planned Disposition: Home Primary Insurance: Re[employer] [facility] Discharge Planning Comments: CM met with patient to assess dc plans/needs. Patient states she lives at home with her , Gerardo. She reports she is independent with all ADL's & IADL's. She does not use any DME and has not had home health services in the past. At dc, she plans to return home with her , Gerardo. No needs identified or verbalized at this time. CM will follow. Policeman: Nahomi Kelley
--- NOTE | 2017-07-12 15:30 | NUR ---
Dressing to right leg incision sites saturated with serosang drainage. Sites cleaned with iodine swabs and gauze and hypafix applied. Pt had complained of being "hot" and wanted temperature taken. First reading 101.6, removed excess blankets and rechecked 10 minutes later. Second reading 102.3 oral. 650 Tylenol given. Pt assisted up by nurse to toilet to urinate. Educated on not using bilateral pressure to raise self from toilet for risk of opening up incision, and not to use a walker or bilateral pressure when goes home. Incentive spirometry performed. 1000
--- NOTE | 2017-07-12 17:34 | NUR ---
Pt assisted up to toilet. Passing gas, no bowel movement. Dressing to upper thigh saturated again. Removed and replaced with gauze and abdomenal pad and covered with spandage instead of tape. New bedding and gown applied.
--- NOTE | 2017-07-12 19:15 | NUR ---
REPORT RECEIVED CARE ASSUMED INITIAL SHIFT ASSESSMENT COMPLETED SEE FLOWSHEET. PT IS AAOX4 BEING MONITORED PER STANDARD CVICU PROTOCOL WITH ALL ALARMS ON AND VERIFIED. RECEIVING IVF VIA LEF SC IVF AND LINES LABELED AND DATED AND ARE CURRENT. PT DOES HAVE TPM AND WIRES ARE SECURED TO CHEST.
--- NOTE | 2017-07-12 19:30 | NUR ---
PT UP TO BATHROOM AMBULATED WITH ASSIST. GAIT STEADY. VOIDED FREELY URINE CLEAR YELLOW NONMALODORIS. PT ASSISTED BACK TO BED PER REQUEST. PILLOWS USED TO ELEVATED EXTREMETIES PROVIDE SUPPORT AND RELIEVE PRESSURE. PT WITH HEART PILLOW FOR SPLINTING PT DENIES FURTHER NEEDS AT THIS TIME. CALL LIGHT LEFT IN REACH
--- NOTE | 2017-07-12 20:00 | NUR ---
PT RECEIVING RESPIRATORY TREATMENT
--- NOTE | 2017-07-12 20:11 | NUR ---
ORAL CARE WITH PERIDEX PROVEDED
--- NOTE | 2017-07-12 20:15 | NUR ---
VISITORS AT BEDSIDE VISITING FREELY WITH PT. DISCUSSED LACK OF SECURITY CODE WORD WITH PT WHO STATES SHE DOESNT REALLY NEED ONE THAT HER FAMILY KEEP EACH OTHER INFORMED
--- NOTE | 2017-07-12 21:15 | NUR ---
HS MEDS GIVEN WITH TEACHING DONE PRIOR TO ADMINSTRATION. PT VERBALIZED COMPREHENSION. NO SWALLOWING DIFFICULTY NOTED. HS SNACK PROVIDED PT REQUESTED.
--- NOTE | 2017-07-12 22:00 | NUR ---
PT UP TO BATHROOM TO VOID. GAIT STEADY. C/O INCISIONAL PAIN WHEN RETURNING TO BED CAUSED FROM ACTIVITY OF AMBULATING. MEDS GIVEN DOCUMENTED ON OCT. PT ENCOURAGED TO USE PILLOW FOR SPLINTING. RIGHT LEG DRESSINGS LOOSE AND FALLING OFF. RIGHT LEG DRESSINGS CHANGED PER ORDER. PT TOLERATED WELL
--- NOTE | 2017-07-12 23:00 | NUR ---
SHIFT ASSESSMENT COMPLETED SEE FLOWSHEET. NO SIGNIFICANT CHANGES,
[2017-07-13] VITALS (24 sets, daily range): BP systolic 123–159; BP diastolic 42–93
--- NOTE | 2017-07-13 01:00 | NUR ---
PT HAS BEEN SLEEPING OFF AND ON TONIGHT EASILY AWAKEN. DENIES NEEDS.
--- NOTE | 2017-07-13 03:00 | NUR ---
SHIFT REASSESSMENT COMPLETED. NOTED THE CVL DRESSING IS ASKEW WITH LOWER EDGES COMPROMISED. CHANGED WITH STERILE TECHNIQUE PER PROTOCOL.
--- NOTE | 2017-07-13 04:15 | NUR ---
PT LEFT UNIT FOR PA AND LAT CXR VIA W/C WITH HOSPITAL STAFF
--- NOTE | 2017-07-13 04:30 | NUR ---
PT RETURNED TO UNIT FROM RADIOLOGY VIA W/C. ASSISTED TO BR AND VOIDED FREELY. PT ASSISTED IN BED THAT ALL LINENS HAD BEEN CHANGED. NOTE RIGHT UPPER DRESSING SATURATED WITH SEROSANG DRAINAGE. DRESSING REMOVED AND ANGIE CLEANED WITH BETADINE. NEW DRESSING APPLIED. GOWN CHANGED. 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 MEDS GIVEN DOCUMENTED ON MAR
--- NOTE | 2017-07-13 05:12 | NUR ---
RT AT BEDSIDE DOING EKG
--- NOTE | 2017-07-13 06:30 | NUR ---
AM VENOUS SPECIMEN DRAWN AND SENT FOR ANALYSIS PER ORDER. PT DENIES NEEDS AT THIS TIME.
[2017-07-13 06:47] LABS: HEMATOCRIT 24.2 % (36.0-48.0); MCH 28.5 pg (26.0-34.0); MCHC 33.1 g/dL (31.0-37.0); MCV 86.1 fL (80.0-100.0); MEAN PLATELET VOLUME 10.1 fL (7.4-10.4); RBC 2.81 10x6/uL (4.00-5.40); RDW 16.2 % (11.5-14.5)
[2017-07-13 07:02] LABS: ALBUMIN 2.4 g/dL (3.4-5.0); ALKALINE PHOSPHATASE 53 U/L (46-116); ALT (SGPT) 23 U/L (10-68); BILIRUBIN - TOTAL 0.77 mg/dL (0.2-1.3); CALC OSMOLALITY 285 mosm/kg (275-300); CALCIUM 7.7 mg/dL (8.5-10.1); CHLORIDE - SERUM 107 mmol/L (98-107); CREATININE - SERUM 0.7 mg/dL (0.6-1.3); GLUCOSE 177 mg/dL (74-106); POTASSIUM - SERUM 4.1 mmol/L (3.5-5.1); PROTEIN - SERUM 5.3 g/dL (6.4-8.2); SODIUM 142 mmol/L (136-145); UREA NITROGEN 11 mg/dL (7-18); eGFR NON AFRICAN AMERICAN > 90 mL/min (90-120)
--- NOTE | 2017-07-13 07:15 | NUR ---
REPORT RECIEVED FROM TIRE GROOVER NURSE. PT RESTING IN CHAIR QUIETLY. NO S/SX OF ACUTE DISTRESS NOTED AT THIS TIME. SHIFT ASSESSMENT COMPLETE PER FLOWSHEET. REFER FOR DETAILS. VSS AT THIS TIME. DENIES NEEDS. WILL CONT TO ASSESS.
--- NOTE | 2017-07-13 09:00 | NUR ---
VSS. NO CHANGES NOTED AT THIS TIME.
--- NOTE | 2017-07-13 11:00 | NUR ---
REASSESSMENT COMPLETE PER FLOWSHEET. NO CHANGES NOTED AT THIS TIME.
--- NOTE | 2017-07-13 11:15 | NUR ---
ORAL CARE DONE WITH PERIDEX
--- NOTE | 2017-07-13 12:56 | NUR ---
Nutrition Follow Up: Pt stated that her appetite is decreased. She said that she had a bowel movement this am and hopes this helps with her appetite. Pt is eating 58% meal avg on a diabetic diet. Wt gain noted. Labs reviewed - glucose elevated. Meds noted. Rec continue current diet. RD following.
--- NOTE | 2017-07-13 13:00 | NUR ---
ROBAXIN AND TORADOL ADMINISTERED FOR PAIN. WILL REASSESS.
--- NOTE | 2017-07-13 15:00 | NUR ---
REASSESSMENT COMPLETE PER FLOWSHEET. NO CHANGES NOTED AT THIS TIME.
[2017-07-13] MEDS ORDERED: EFFEXOR100 MG PO (16:18)
--- NOTE | 2017-07-13 17:30 | NUR ---
ASSISTED BACK TO BED AND CHANGED RIGHT LEG DRESSING'S AND SUBSTERNAL DRESSING. RIGHT LEG INCISIONS DRAINING SEROUSANG FLUID. DRESSING'S CHANGED TWICE THIS SHIFT. WILL CONT TO ASSESS.
--- NOTE | 2017-07-13 18:52 | NUR ---
ORAL CARE WITH PERIDEX PROVIDED
--- NOTE | 2017-07-13 19:30 | NUR ---
REPORT RECIEVED. ASSESSMENT COMPLETED. SEE FLOW SHEET FOR FURTHER DETAILS. PT HELPED TO BED AND HOOKED BACK TO CVICU MONITORS. PT POSITIONED FOR COMFORT. DENIES ANY NEEDS AND SHOWS NO SIGN OF DISTRESS. BED IN LOW POSITION CALL LIGHT IN REACH, WILL CONTINUE TO MONITOR PT.
--- NOTE | 2017-07-13 21:10 | NUR ---
HS MEDS ADMINISTERED. PER OCT. PT POSITIONED FOR COMFORT WILL CONTINUE TO MONITOR.
--- NOTE | 2017-07-13 23:00 | NUR ---
REASSESSMENT COMPLETED. NO ACUTE CHNAGES AT THIS TIME. SEE FLOW SHEET FOR FURTHER DETAILS. PT RESTING IN BED, DENIES ANY NEEDS. WILL CONTINUE TO MONITOR PT.
[2017-07-14] VITALS (16 sets, daily range): BP systolic 109–167; BP diastolic 56–113
--- NOTE | 2017-07-14 01:00 | NUR ---
BATH GIVEN AND HELPED TO BED WITH CLEAN LINENS AND GOWN. POSITIONED FOR COMFORT. WILL CONTINUE TO MONITOR PT.
--- NOTE | 2017-07-14 02:15 | NUR ---
PT STATES THAT HER DRESSING ON HER RIGHT LEG ARE LEAKING. THEY APPEAR TO BE OOZING. CHANGED PER ORDER. POSITIONED FOR COMFORT IN BED. WILL CONTINUE TO MONITOR PT.
--- NOTE | 2017-07-14 03:00 | NUR ---
REASSEMENT COMPLETED. NO ACUTE CHANGES AT THIS TIME. SEE FLOW SHEET FOR FURTHER DETAILS. PT DENIES AND NEEDS. CALL LIGHT IN REACH ,WILL CONTINUE TO MONITOR.
--- NOTE | 2017-07-14 05:15 | NUR ---
HELPED PT TO THE RESTROOM AND BACK TO THE CHAIR. PT HAD A GOOD BM. PUT BACK ON ICU MONITORS CALL LIGHT IN REACH. WILL CONTINUE TO MONITOR.
[2017-07-14 06:24] LABS: HEMATOCRIT 24.6 % (36.0-48.0); MCH 28.4 pg (26.0-34.0); MCHC 32.5 g/dL (31.0-37.0); MCV 87.2 fL (80.0-100.0); MEAN PLATELET VOLUME 9.8 fL (7.4-10.4); RBC 2.82 10x6/uL (4.00-5.40); WBC 8.3 10x3/uL (4.8-10.8)
[2017-07-14 06:36] LABS: ALBUMIN 2.5 g/dL (3.4-5.0); ALKALINE PHOSPHATASE 55 U/L (46-116); ALT (SGPT) 25 U/L (10-68); CALC OSMOLALITY 288 mosm/kg (275-300); CALCIUM 7.9 mg/dL (8.5-10.1); CARBON DIOXIDE 28.2 mmol/L (21.0-32.0); CHLORIDE - SERUM 108 mmol/L (98-107); CREATININE - SERUM 0.8 mg/dL (0.6-1.3); GLUCOSE 170 mg/dL (74-106); POTASSIUM - SERUM 3.7 mmol/L (3.5-5.1); PROTEIN - SERUM 5.6 g/dL (6.4-8.2); SODIUM 143 mmol/L (136-145); UREA NITROGEN 12 mg/dL (7-18); eGFR NON AFRICAN AMERICAN 78 mL/min (90-120)
--- NOTE | 2017-07-14 14:15 | NUR ---
TEMPORARY PACER WIRES AND L SUBCLAVIAN DC'D BY DR. ART'S NURSE FLORY.
[2017-07-14] MEDS ORDERED: TORADOL10 MG PO (15:36)
--- NOTE | 2017-07-14 17:30 | NUR ---
DISCHARGED HOME WITH DAUGHTER. TO CAR VIA WHEELCHAIR WITH ALL PERSONAL BELONGINGS AND DISCHARGE PAPERWORK.
--- NOTE | 2017-07-15 10:37 | OP ---
PATIENT NAME: SHAHZAD HERNANDEZ MEDICAL RECORD: [id number] :56 LOCATION:[facility] ADMISSION DATE:07/10/17 SURGEON: LUÍS ART MD DATE OF OPERATION: 07/10/2017 SURGEON: Luís Art MD ANESTHESIA: General endotracheal, Dr. Banegas. OPERATION PERFORMED: Coronary artery bypass utilizing left internal thoracic, left anterior descending, reverse saphenous vein segment to the obtuse marginal coronary artery and reverse saphenous vein graft to the right coronary artery. PREOPERATIVE DIAGNOSIS: Atherosclerosis of coronary arteries with angina pectoris. POSTOPERATIVE DIAGNOSIS: Atherosclerosis of coronary arteries with angina pectoris. INDICATION FOR OPERATION: Angina pectoris. FINDINGS AT OPERATION: The greater saphenous vein was of good quality and caliber for grafting. The left internal thoracic was also a good quality vessel. The target vessels were of good caliber and quality for grafting. ESTIMATED BLOOD LOSS: Cell Saver was used. DESCRIPTION OF PROCEDURE: After informed consent, adequate preoperative medication, and evaluation, the patient was brought to the operating room and placed on the table in the supine position. After induction of general endotracheal anesthesia and application of appropriate monitoring devices, the chest, neck, abdomen, and both legs were prepped and draped in a sterile field. Utilizing Betadine scrub, alcohol, and Betadine solution, a Betadine-impregnated drape was also used. Saphenous vein was harvested from the right leg and prepared for reverse saphenous vein graft. The leg was closed over drains utilizing 3-0 Vicryl and skin alonso. A median sternotomy incision was used and dissection carried down the fascia. Hemostasis maintained with electrocautery. Sternum was divided. Innominate vein was identified and protected. The left internal thoracic was taken down and prepared for grafting. The patient was given a calculated dose of heparin and cannulated in a standard fashion utilizing one aortic, one 2-stage cannula in the atrium and inferior vena cava. The patient was placed on cardiopulmonary bypass, cooled to 32 degrees centigrade. A cross clamp was placed just proximal to the aortic cannula and the patient was given cardioplegic solution through the aortic root. The patient was given a cold induction and cold maintenance. The patient was given cold intermittent cardioplegic solution throughout the procedure through the root, through the grafts or a combination of both. The first vessel to be grafted was the distal right coronary artery. It was grafted end-to-side utilizing running 7-0 Prolene suture. Grafts were measured back to the aorta and a proximal anastomosis fashioned utilizing running 6-0 Prolene suture. Next, first obtuse marginal was grafted end-to-side utilizing a running 7-0 Prolene suture. Grafts were measured back to the aorta and a proximal anastomosis fashioned utilizing running 6-0 Prolene suture. Next, left internal thoracic was brought through the hole in pericardium, sutured left anterior descending utilizing a running 8-0 Prolene suture. Pedicle was attached to OPERATIVE REPORT [id number] SHAHZAD HERNANDEZ epicardium with 6-0 Prolene suture. All maneuvers to remove trapped air were performed. The patient was given warm cardioplegic reperfusion and controlled reperfusion. The patient rewarmed to 37 degrees centigrade. Two atrial and 2 ventricular pacing wires were placed in the heart and brought out through the epigastric area. The patient was weaned cardiopulmonary bypass. After being stable off bypass, she was given calculated dose of protamine to reverse the heparin. Hemostasis was achieved. A #40 right angle and #36 chest tubes were brought in through the epigastric area and placed in mediastinum. A separate left pleural tube was connected to underwater seal and suction. Chest was again irrigated. Instrument count and sponge count were correct times 2. Chest was closed in layers utilizing #7 wire on the sternum, #2 Vicryl on the linea alba and pectoralis fascia. Subcutaneous tissue was approximated with 3-0 Vicryl and skin approximated with 3-0 subcuticular Vicryl. Sterile dressings were applied. The patient tolerated the procedure well and transferred to [facility] ICU in satisfactory condition. TRANSINT:[id number] Voice Confirmation ID: [id number] DOCUMENT ID: [id number] LUÍS ART MD at 1037 CC: [id number] DICTATION DATE: 07/10/17 1450 AGRICULTURAL AGENT: 07/10/17 1525 DIS IN 07/14/17 [facility] [address] [place] [address]
--- NOTE | 2017-07-17 09:15 | EC ---
PATIENT:SHAHZAD HERNANDEZ DATE OF SERVICE: 07/10/17 SEX: F MEDICAL RECORD: [id number] DATE OF : 56 LOCATION:[place] [address] AGE OF PATIENT: 57 ADMISSION DATE: 07/10/17 REFERRING PHYSICIAN: INTERPRETING PHYSICIAN: RAJWINDER MORAN MD ECHOCARDIOGRAM REPORT ECHO CHARGES CLINICAL DIAGNOSIS: ECHOCARDIOGRAPHIC MEASUREMENTS (adult normal given) AC root (d.<3.7cm) cm LV Septum d (<1.2 cm> cm Valve Excursion cm LV Septum (systole) cm Left Atria (s.<4.0cm> cm LVPW d(<1.2cm) cm RV (d.<2.3cm) cm LVPW (sytole) cm LV diastole(<5.6CM) cm MV E-F(>70mm/sec) cm LV systole cm LVOT Diameter cm MV exc.(>10mm) cm Est.ejection fraction (50-75%) % Pericardial Effusion DOPPLER: LVIT cm/sec A cm/sec E cm/sec LA cm/sec RVSP mmHg LVOT cm/sec AOP1/2T m/s Asc. Ao cm/sec RVOT cm/sec RA cm/sec PA cm/sec AV Gradient Peak mmHg AV Mean mmHg AV Area cm MV Gradient Peak mmHg MV Mean mmHg MV Area cm COMMENTS: [employer] Equipment Operator: Gabriela DENTDSOE Product Responsibility Liaison: Danna Moran TAPE# PACS DATE OF SERVICE: 07/10/2017 INTRAOPERATIVE TRANSESOPHAGEAL ECHOCARDIOGRAM FINDINGS: 1. Left ventricle appears to show mild left ventricular hypertrophy with normal function. 2. There is mild mitral regurgitation. The mitral valve is grossly shown to be normal structurally. 3. The tricuspid valve seems to be structurally normal. There is a catheter ECHOCARDIOGRAM REPORT [id number] SHAHZAD HERNANDEZ artifact in the right atrium. 4. The aortic valve is trileaflet and normal. 5. Left atrial appendage was visualized. There is no thrombus seen. Postoperatively, the patient's LV function was hyperdynamic. 6. Pericardium showed no pericardial effusion. TRANSINT:[id number] Voice Confirmation ID: [id number] DOCUMENT ID: [id number] RAJWINDER MORAN MD at 0915 CC: [id number] DICTATION DATE: 07/11/17716 SWITCH CLEANER: 07/11/17 0755 DIS IN 07/14/17 [facility] [address] [facility] [place]
== END 2017-07-14 17:45 | disposition home or self-care (01) | DRG 236 ==
LOC: D.SDCHOLD 05:00 → D.CVICU 05:00 → D.SDCHOLD 07:30 → D.CVICU 13:47
PROVIDERS: ADMIT Internal Medicine Cardiovascular Disease
PROC: 021109W Bypass Coronary Artery, Two Arteries from Aorta with Autologous Venous Tissue, Open Approach (ICD-10-PCS; 2017-07-10)
PROC: 06BP0ZZ Excision of Right Saphenous Vein, Open Approach (ICD-10-PCS; 2017-07-10)
PROC: 5A1221Z Performance of Cardiac Output, Continuous (ICD-10-PCS; 2017-07-10)
PROC: 02100AC Bypass Coronary Artery, One Artery from Thoracic Artery with Autologous Arterial Tissue, Open Approach (ICD-10-PCS; principal; 2017-07-10 07:30)
DX: I25.119 Atherosclerotic heart disease of native coronary artery with unspecified angina pectoris (principal); E11.9 Type 2 diabetes mellitus without complications; I10 Essential (primary) hypertension; E78.5 Hyperlipidemia, unspecified; G89.4 Chronic pain syndrome

== ENCOUNTER 2017-07-21 13:44 | Emergency (ER) | payer MEDICARE ==
[~2017-07-21 13:44] MED LIST changes: +EFFEXOR100 MG PO; +TORADOL10 MG PO
[2017-07-21 15:31] LABS: BASOPHILS 0.2 % (0-2); EOSINOPHILS 2.6 % (0-7); HEMATOCRIT 29.3 % (36.0-48.0); HEMOGLOBIN 9.1 g/dL (12-16); IMMATURE GRANULOCYTES 0.2 % (0-5); LYMPHOCYTES 18.7 % (15-50); MCH 27.9 pg (26.0-34.0); MCHC 31.1 g/dL (31.0-37.0); MCV 89.9 fL (80.0-100.0); MEAN PLATELET VOLUME 9.5 fL (7.4-10.4); MONOCYTES 3.2 % (2-11); NEUTROPHILS 75.1 % (40-80); PLATELET COUNT 626 10x3/uL (130-400); RBC 3.26 10x6/uL (4.00-5.40)
[2017-07-21 18:15] LABS: ALBUMIN 2.9 g/dL (3.4-5.0); ANION GAP 11.5 mmol/L (8-16); BILIRUBIN - TOTAL 0.72 mg/dL (0.2-1.3); CALCIUM 8.9 mg/dL (8.5-10.1); CARBON DIOXIDE 28.6 mmol/L (21.0-32.0); POTASSIUM - SERUM 4.1 mmol/L (3.5-5.1); PROTEIN - SERUM 6.8 g/dL (6.4-8.2)
== END 2017-07-21 20:21 | disposition home or self-care (01) ==
LOC: D.ER 13:44
PROVIDERS: Family Medicine; Physician Assistant
DX: G89.18 Other acute postprocedural pain (principal); L76.34 Postprocedural seroma of skin and subcutaneous tissue following other procedure; D64.9 Anemia, unspecified; I10 Essential (primary) hypertension; E11.9 Type 2 diabetes mellitus without complications; Z79.4 Long term (current) use of insulin

== ENCOUNTER → 2017-07-28 08:19 | Outpatient (CLI) | payer MEDICARE ==
[2017-07-11 09:49] VITALS: BMI 40.5
[2017-07-28 08:45] LABS: HEMATOCRIT 32.9 % (36.0-48.0); HEMOGLOBIN 10.4 g/dL (12-16); MCH 27.7 pg (26.0-34.0); MCHC 31.6 g/dL (31.0-37.0); MCV 87.7 fL (80.0-100.0); MEAN PLATELET VOLUME 8.8 fL (7.4-10.4); RBC 3.75 10x6/uL (4.00-5.40); RDW 15.8 % (11.5-14.5); WBC 6.1 10x3/uL (4.8-10.8)
[2017-07-28 08:58] LABS: ALBUMIN 3.1 g/dL (3.4-5.0); BILIRUBIN - TOTAL 0.45 mg/dL (0.2-1.3); CARBON DIOXIDE 30.1 mmol/L (21.0-32.0); CREATININE - SERUM 0.9 mg/dL (0.6-1.3); POTASSIUM - SERUM 4.1 mmol/L (3.5-5.1); PROTEIN - SERUM 7.1 g/dL (6.4-8.2)
== END | disposition home or self-care (01) ==
LOC: D.LAB 08:00 → D.RAD 08:15 → D.LAB 08:19
PROVIDERS: Internal Medicine Cardiovascular Disease
DX: R91.8 Other nonspecific abnormal finding of lung field (principal); D64.9 Anemia, unspecified

== ENCOUNTER 2017-07-31 12:03 | Emergency (ER) | payer MEDICARE ==
[2017-07-11 09:49] VITALS: BMI 40.5
[2017-07-31 12:47] LABS: BASOPHILS 0.2 % (0-2); EOSINOPHILS 4.6 % (0-7); HEMATOCRIT 33.8 % (36.0-48.0); HEMOGLOBIN 10.8 g/dL (12-16); LYMPHOCYTES 33.9 % (15-50); MCH 28.1 pg (26.0-34.0); MCV 87.8 fL (80.0-100.0); MEAN PLATELET VOLUME 9.2 fL (7.4-10.4); MONOCYTES 5.4 % (2-11); NEUTROPHILS 55.9 % (40-80); RBC 3.85 10x6/uL (4.00-5.40); RDW 15.8 % (11.5-14.5); WBC 5.6 10x3/uL (4.8-10.8)
[2017-07-31 12:48] LABS: PLATELET COUNT 390 10x3/uL (130-400)
[2017-07-31 13:15] LABS: ALBUMIN 3.2 g/dL (3.4-5.0); ALKALINE PHOSPHATASE 130 U/L (46-116); ALT (SGPT) 13 U/L (10-68); BILIRUBIN - TOTAL 0.38 mg/dL (0.2-1.3); CALC OSMOLALITY 279 mosm/kg (275-300); CARBON DIOXIDE 30.8 mmol/L (21.0-32.0); CHLORIDE - SERUM 102 mmol/L (98-107); CREATININE - SERUM 0.9 mg/dL (0.6-1.3); GLUCOSE 127 mg/dL (74-106); PROTEIN - SERUM 6.9 g/dL (6.4-8.2); SODIUM 139 mmol/L (136-145); UREA NITROGEN 12 mg/dL (7-18); eGFR NON AFRICAN AMERICAN 68 mL/min (90-120)
[2017-07-31 13:26] LABS: CHOL - HDL RATIO 6.4 ratio (2.3-4.1); CHOLESTEROL, TOTAL 217 mg/dL (0-200); CKMB 1.4 U/L (0.0-3.6); CREATINE KINASE 76 UL (21-215); HDL CHOLESTEROL 34 mg/dL (32-96); LDL CHOLESTEROL 152 mg/dL (0-100); LDL-HDL RATIO 4.5 ratio (1.5-3.5); TRIGLYCERIDE 157 mg/dL (30-200); TROPONIN-I 0.024 ng/mL (0.000-0.060)
== END 2017-07-31 17:01 | disposition home or self-care (01) ==
LOC: D.ER 12:03
PROVIDERS: Emergency Medicine
DX: R07.9 Chest pain, unspecified (principal); I10 Essential (primary) hypertension; E11.9 Type 2 diabetes mellitus without complications; Z79.4 Long term (current) use of insulin; I49.3 Ventricular premature depolarization

== ENCOUNTER → 2017-09-05 16:39 | Outpatient (CLI) | payer MEDICARE ==
[2017-07-11 09:49] VITALS: BMI 40.5
[2017-09-05 18:48] LABS: BASOPHILS 0.2 % (0-2); EOSINOPHILS 3.6 % (0-7); HEMATOCRIT 42.2 % (36.0-48.0); HEMOGLOBIN 13.1 g/dL (12-16); LYMPHOCYTES 44.5 % (15-50); MCH 28.1 pg (26.0-34.0); MCV 90.4 fL (80.0-100.0); MEAN PLATELET VOLUME 11.3 fL (7.4-10.4); MONOCYTES 5.8 % (2-11); NEUTROPHILS 45.9 % (40-80); RBC 4.67 10x6/uL (4.00-5.40); RDW 14.4 % (11.5-14.5); WBC 5.5 10x3/uL (4.8-10.8)
[2017-09-05 18:51] LABS: PLATELET COUNT 267 10x3/uL (130-400)
[2017-09-05 19:02] LABS: ALBUMIN 3.7 g/dL (3.4-5.0); ANION GAP 8.3 mmol/L (8-16); BILIRUBIN - DIRECT 0.07 mg/dL (0.00-0.30); BILIRUBIN - INDIRECT 0.27 mg/dL (0.00-1.00); BILIRUBIN - TOTAL 0.34 mg/dL (0.2-1.3); CALCIUM 9.3 mg/dL (8.5-10.1); CARBON DIOXIDE 33.2 mmol/L (21.0-32.0); CHOL - HDL RATIO 6.7 ratio (2.3-4.1); LDL-HDL RATIO 4.8 ratio (1.5-3.5); POTASSIUM - SERUM 3.5 mmol/L (3.5-5.1); PROTEIN - SERUM 6.6 g/dL (6.4-8.2)
== END | disposition home or self-care (01) ==
LOC: D.LABREF 16:39
PROVIDERS: Internal Medicine Cardiovascular Disease
DX: I25.10 Atherosclerotic heart disease of native coronary artery without angina pectoris (principal); I10 Essential (primary) hypertension; E78.5 Hyperlipidemia, unspecified

== ENCOUNTER → 2017-09-19 19:32 | Outpatient (CLI) | payer MEDICARE ==
[2017-07-11 09:49] VITALS: BMI 40.5
[2017-09-19 20:29] LABS: CHOL - HDL RATIO 1.8 ratio (2.3-4.1); LDL-HDL RATIO 0.6 ratio (1.5-3.5)
== END | disposition home or self-care (01) ==
LOC: D.LABREF 19:32
PROVIDERS: Internal Medicine Cardiovascular Disease
DX: I10 Essential (primary) hypertension (principal)

== ENCOUNTER → 2018-05-31 16:36 | Outpatient (CLI) | payer MEDICARE ==
[2017-07-11 09:49] VITALS: BMI 40.5
== END | disposition home or self-care (01) ==
LOC: D.MAMMO 16:15
DX: Z12.31 Encounter for screening mammogram for malignant neoplasm of breast (principal)

== ENCOUNTER → 2019-02-18 12:59 | Outpatient (CLI) | payer MEDICARE ==
[2017-07-11 09:49] VITALS: BMI 40.5
== END | disposition home or self-care (01) ==
LOC: D.HCCARDIO 02-12 10:00
PROVIDERS: ATTEND Internal Medicine Cardiovascular Disease
DX: I25.10 Atherosclerotic heart disease of native coronary artery without angina pectoris (principal)